=== PATIENT | female | born 1970 | race Caucasian/White ===

== ENCOUNTER → 2020-11-06 | Outpatient (CLI) | payer OTHER ==
--- NOTE | 2020-11-06 17:15 | RAD ---
INDICATION: Reason: HIP PAIN for 3-4 months no known trauma / Spl. Instructions: / History: COMPARISON: None. IMPRESSION: Right hip: 2 views obtained. No evidence of acute fracture or dislocation. Definite degenerative changes not seen within the limits of plain film. Electronically signed by: Savage Sutherland MD (11/06/2020 5:12 PM) [id number]
== END ==
LOC: DXRAD 15:02
PROVIDERS: ATTEND Orthopaedic Surgery
DX: M25.551 Pain in right hip (principal)
CPT/HCPCS: 73502